=== PATIENT | female | born 1990 | race Caucasian/White ===

== ENCOUNTER 2024-01-12 12:51 | Emergency (ER) | payer BC, SELFPAY ==
[2024-01-12] VITALS (11 sets, daily range): BP systolic 105–124; BP diastolic 66–80; PULSE 95–114; RESP 14–18; TEMP 36.9–37.4; O2SAT 96–100
--- NOTE | 2024-01-12 13:02 | ECG_ITS ---
APPROVED REPORT Exam: Resting ECG HR:99 bpm ECG Measurements Heart Rate 99 AXES MD 134 P 60 QRSd 86 QRS 67 QT 300 T 45 QTc 356 Conclusion SINUS RHYTHM NONSPECIFIC ST & T-WAVE ABNORMALITY BORDERLINE ECG No STEMI Electronically signed by : ALEC WHITE, 01/13/2024 06:31:24
--- NOTE | 2024-01-12 13:18 | ED_ITS ---
Discharge Plan Disposition Patient Disposition: Home, Self-Care Condition: Good Prescriptions Prescriptions: New ondansetron 4 mg tablet,disintegrating 4 mg PO Q6H PRN (Reason: Nausea) Qty: 30 0RF Referrals Follow up/Referrals: Provider,Referral, MD [Referring] - See instructions Activity Restrictions/Add. Instructions Additional Instructions/Restrictions: Drink as much water, Gatorade, Powerade as you are able. Use Zofran every 6 hours as needed to ensure you are able to tolerate liquids. Eat small, bland meals as you are able. It may seem like this is going straight through you, but your body will still digest some of it. Ensure you keep surfaces clean and wash your hands with soap and water to attempt to prevent spread of the likely infectious gastroenteritis. Please follow up with your primary care provider in 2-3 days. Please return to ED if your symptoms worsen, change in location, change in severity, new symptoms develop or if you become concerned for your health. Clinical Impressions Clinical Impression: Gastroenteritis Stand Alone Forms Stand Alone Forms: Work/School Release Instructions Patient Instructions: DI for Syncope in Adults (Fainting), DI for Diarrhea and Traveler's Diarrhea -- Adult, DI for Diarrhea and Traveler's Diarrhea -- Child, DI for Nausea -- Adult, DI for Nausea -- Child, DI for Syncope in Children (Fainting) Print Language Print Language: Italian Discharge ED Provider: Charmaine Fraser General Adult HPI General Chief complaint: Syncope Stated complaint: nausea, vomiting, diarrhea Time Seen by Provider: 01/12/24 12:59 Mode of Arrival: EMS Source of Information: Patient and EMS Limitations: No Limitations Description of Symptoms (Recalled from ER Triage Doc. by RN): pt states she became sick today. She c/o N/V/D, myalgia, and a syncopal episode. pt states she was seen at a [facility] in [place] today and was negative for covid and flu. pt reports while driving home she became weak and pulled over. pt reports she passed out while pulled over. pt has a hx of HTN, thyroid disease, and a madiha. pt was given 500ml bolus of NS and 12.5 mg IV phenergran in route. pt states she feels some better now. History of Present Illness HPI narrative: Nguyen Souza is a 33 y/o female with a past medical history of hypertension and hypothyroidism who presents with nausea, vomiting, diarrhea and syncope. Patient states her symptoms started this morning when she initially woke up feeling a little poorly. She did not developed a fever of 101 ?F. Patient states she went to work and after approximately an hour, she left due to her symptoms. On her way home, patient began feeling worse and pulled over into a store parking lot. She then had a projectile vomiting episode that was accompanied by diarrhea and syncope. Patient currently complaining of a headache. Patient states EMS gave her Phenergan and IV fluids and she feels little bit better now. Related Data Previous Rx's ?Medication ?Instructions ?Recorded ondansetron 4 mg disintegrating 4 mg PO Q6H PRN Nausea #30 tabs 01/12/24 tablet Allergies Allergy/AdvReac Type Severity Reaction Status Date / Time codeine Allergy Unknown Verified 01/12/24 13:09 allergy reaction [facility] Disclaimer: The information contained in this section may have been updated after the patient was seen, as this information can be updated by other users. Social History Smoking Status: Never smoker alcohol intake: current current occupational status: employed Travel in the last 8 weeks: None ROS Obtained: Yes All systems reviewed & no additional complaints except as documented Physical Exam General General appearance: alert and in no apparent distress ENT ENT exam: Present normal exam, normal oropharynx, mucous membranes moist, TM's normal bilaterally and normal external ear exam Respiratory Respiratory exam: Present normal lung sounds bilaterally; Absent respiratory distress Cardiovascular Cardiovascular exam: Present regular rate and normal rhythm; Absent JVD Abdominal Exam Abdominal exam: Present soft and normal bowel sounds; Absent distention, tenderness or guarding Neurological Exam Neurological exam: Present alert and oriented X3 Psychiatric Psychiatric exam: Present normal affect and normal mood Skin Skin exam: Present warm, dry and pallor Medical Decision Making Medical Records Screening: Per USPSTF and CDC recommendations, given the prevalence of disease in our region, it is our hospital?s policy to screen for HIV and viral Hepatitis for all patients aged 18 and over and those with ongoing risk factors. Jeyson Inquiry Pt receiving controlled substance: No Vital Signs: 01/12/24 12:55 01/12/24 13:00 01/12/24 13:02 Temperature 99.3 F Temperature Source Oral Pulse Rate 114 H 104 H Pulse Rate [Left] 101 H Respiratory Rate 14 Blood Pressure 117/77 Blood Pressure [Right Arm] 124/75 Blood Pressure Mean [Right Arm] 91 Blood Pressure Source [Right Arm] Automatic Cuff Blood Pressure Position [Right Arm] Sitting 02 Sat by Pulse Oximetry 98 99 99 Oxygen Delivery Method Room Air 01/12/24 13:15 01/12/24 13:29 01/12/24 13:31 Temperature Temperature Source Pulse Rate 95 H 95 H 99 H Pulse Rate [Left] Respiratory Rate Blood Pressure 115/74 Blood Pressure [Right Arm] Blood Pressure Mean [Right Arm] Blood Pressure Source [Right Arm] Blood Pressure Position [Right Arm] 02 Sat by Pulse Oximetry 99 99 100 Oxygen Delivery Method 01/12/24 14:01 01/12/24 14:31 Temperature Temperature Source Pulse Rate 108 H 107 H Pulse Rate [Left] Respiratory Rate Blood Pressure 105/66 L 116/78 Blood Pressure [Right Arm] Blood Pressure Mean [Right Arm] Blood Pressure Source [Right Arm] Blood Pressure Position [Right Arm] 02 Sat by Pulse Oximetry 98 98 Oxygen Delivery Method Room Air Room Air Lab Data Lab Results 01/12/24 12:52: WBC 10.9 H, RBC 4.39, Hgb 12.1 L, Hct 37.7, MCV 85.8, MCH 27.4, MCHC 32.0, RDW 14.9, Plt Count 308, MPV 7.3 L, Neut % (Auto) 90.9 H, Lymph % (Auto) 5.6 L, [place] % (Auto) 2.7, Eos % (Auto) 0.5, Baso % (Auto) 0.3, Neut # (Auto) 9.9 H, Lymph # (Auto) 0.6 L, [place] # (Auto) 0.3, Eos # (Auto) 0.1, Baso # (Auto) 0.0, Total Counted 100, Neutrophils % (Manual) 87 H, Lymphocytes % (Manual) 11, Monocytes % (Manual) 2, Platelet Estimate Normal, RBC Morphology Normal, Sodium 138, Potassium 4.4, Chloride 110 H, Carbon Dioxide 22, Anion Gap 10.4, BUN 15, Creatinine 0.80, Estimated Creat Clear 116, Estimated GFR 84, Est GFR ( Amer) 101, Glucose 94, Calcium 8.3 L, Total Bilirubin 0.6, AST 36, ALT 23, Alkaline Phosphatase 70, Total Protein 6.4, Albumin 3.7, Globulin 2.7, Albumin/Globulin Ratio 1.4, Lipase 118, Serum HCG, Qual Negative 01/12/24 12:52 01/12/24 12:52 Orders (Tests/Meds): ORDERS Category Date Time Status CBC w/Auto Diff [Complete Blood Count Auto Diff] Stat Lab 01/12/24 12:52 Completed CMP [Comprehensive Metabolic Panel] Stat Lab 01/12/24 12:52 Completed Lipase Stat Lab 01/12/24 12:52 Completed Serum [HCG Qualitative, Serum] Stat Lab 01/12/24 12:52 Completed Urinalysis and Microscopic Stat Lab 01/12/24 13:16 Ordered Medical Decision Narrative: In summary, this is a 33-year-old female presenting with nausea, vomiting, diarrhea and syncope that started today. Patient has history of hypertension and hypothyroidism that are both well-controlled. Differential diagnosis includes but is not limited to, gastroenteritis, IBD, IBS, partial bowel obstruction, viral URI, pyelonephritis, among others. In order to evaluate the patient, will perform CBC, CMP, lipase, and urinalysis. Patient given IV Phenergan and 500 mL IV fluids prior to arrival. Will encourage oral fluid rehydration while in the department and awaiting laboratory evaluation results. Patient's laboratory evaluation significant for slight leukocytosis of 10.9, slight anemia 12.1, no thrombocytopenia. Patient's leukocytosis has a neutrophil predominance patient CMP negative for anion gap, hypokalemia, hyponatremia. Lipase is within normal limits, negative. Patient unable to provide a urine sample, however, low concern for acute cystitis at this time. On reevaluation, patient tolerating liquid intake without vomiting. Discussed with patient's that patient is likely suffering from an infectious gastroenteritis that will have to run its course with supportive care. Patient given return precautions, follow-up recommendations, time off from work as to provide adequate rest and infection prevention. Charmaine Fraser MD PGY-3, Emergency Medicine Critical Care Critical Care Time Critical Care Time: No
[2024-01-12 13:25] LABS: Albumin Level 3.7 g/dl (3.5-5.0); Chloride 110 mmol/L (98-107)
[2024-01-12 13:26] LABS: Potassium 4.4 mmoL/L (3.5-5.1); Sodium 138 mmol/L (136-145)
[2024-01-12 13:27] LABS: Basophils % 0.3 % (0.1-2.0); Eosinophils # 0.1 K/mm3 (0.0-0.4); Eosinophils % 0.5 % (0.1-12.0); Hematocrit 37.7 % (37.0-47.0); Hemoglobin 12.1 g/dL (12.2-16.2); Lymphocytes # 0.6 K/mm3 (0.7-4.5); Lymphocytes % 5.6 % (10-50); Mean Corpuscular Hemoglobin 27.4 pg (27.0-31.2); Mean Corpuscular Volume 85.8 fl (81-99); Mean Platelet Volume 7.3 fl (7.4-10.4); Monocytes # 0.3 K/mm3 (0.1-1.0); Monocytes % 2.7 % (1.7-9.3); Neutrophils # 9.9 K/mm3 (1.8-7.8); Neutrophils % 90.9 % (37.0-80.0); Platelet Count 308 K/mm3 (142-424); Red Blood Count 4.39 M/mm3 (4.20-5.40); Red Cell Distribution Width 14.9 % (11.5-17.5); White Blood Count 10.9 K/mm3 (4.8-10.8)
[2024-01-12 13:28] LABS: Alanine Aminotransferase 23 U/L (12-78); Alkaline Phosphatase 70 U/L (38-126); Anion Gap 10.4 mEq/L (5-15); Aspartate Amino Transferase 36 U/L (14-36); Bilirubin,Total 0.6 mg/dl (0.2-1.3); Blood Urea Nitrogen 15 mg/dl (7-17); Carbon Dioxide 22 mmol/L (22.0-30.0); Creatinine Clearance Estimated 116 mL/min (50-200); Estimated Glomerular Filt Rate 84 ml/min (>60); GFR (African American) 101 ML/MIN (>60)
[2024-01-12 13:29] LABS: Albumin/Globulin Ratio 1.4 (1.1-1.8); Calcium 8.3 mg/dl (8.4-10.2); Globulin 2.7 g/dL (1.3-3.2); Glucose 94 mg/dl (74-100); Lipase 118 U/L (23-300); Total Protein,Serum 6.4 g/dl (6.3-8.2)
[2024-01-12 13:35] LABS: MANUAL DIFFERENTIAL MANUAL DIFFERENTIAL (MANUAL DIFF)
[2024-01-12 14:55] LABS: Lymphocytes % 11 % (10-50); Monocytes % 2 % (2-9); Neutrophils % 87 % (42-76); Platelet Estimate Normal; RBC Morphology Normal; Total Cells Counted 100
[2024-01-12 14:56] LABS: HCG Qualitative, Serum Negative (Negative)
--- NOTE | 2024-01-12 15:40 | PC.NURSE ---
I took the pt out via wheelchair at d/c.
== END 2024-01-12 15:45 | disposition home or self-care (01) ==
PROVIDERS: Emergency Provider Student in an Organized Health Care Education/Training Program; PCP Nurse Practitioner
DX: K52.9 Noninfective gastroenteritis and colitis, unspecified (principal); R11.2 Nausea with vomiting, unspecified; M79.10 Myalgia, unspecified site; R55 Syncope and collapse; R53.1 Weakness; R50.9 Fever, unspecified; R51.9 Headache, unspecified
CPT/HCPCS: 80053; 83690; 84703; 85007; 85025; 85027; 93005; 99283

== ENCOUNTER 2024-09-28 15:42 | Emergency (ER) | payer OTHER, SELFPAY ==
[2024-09-28] VITALS (8 sets, daily range): BP systolic 121–148; BP diastolic 86–104; PULSE 63–86; RESP 11–20; TEMP 36.6–36.9; O2SAT 99–100; BMI 28.3
--- NOTE | 2024-09-28 15:41 | ECG_ITS ---
APPROVED REPORT Exam: Resting ECG HR:70 bpm ECG Measurements Heart Rate 70 AXES WI 154 P 59 QRSd 90 QRS 64 QT 379 T 31 QTc 400 Conclusion SINUS RHYTHM NORMAL ECG UNCONFIRMED REPORT Normal sinus rhythm. No ST elevation or depression Electronically signed by : PATRICE SHER, 09/29/2024 00:29:37
--- NOTE | 2024-09-28 15:44 | ED_ITS ---
Discharge Plan Disposition Patient Disposition: Home, Self-Care Prescriptions Prescriptions: New ferrous sulfate 325 mg (65 mg iron) tablet 325 mg PO DAILY Qty: 30 0RF ondansetron 4 mg tablet,disintegrating 4 mg PO Q6H PRN (Reason: nausea and vomiting) Qty: 16 0RF No Action ondansetron 4 mg tablet,disintegrating 4 mg PO Q6H PRN (Reason: Nausea) Qty: 30 0RF Referrals Follow up/Referrals: Susana Kennedy DO [Staff Physician, [facility]] - See instructions Provider,Referral, [Primary Care Provider, Medical] - See instructions Activity Restrictions/Add. Instructions Additional Instructions/Restrictions: You are being referred to the [facility] specialists. I encourage you to contact their office to schedule an appointment due to your heavy and prolonged vaginal bleeding. You are also found to have a mild kidney injury, likely secondary to dehydration in the setting of your vomiting. I encourage you to drink plenty of fluids, including water, sugar-free Gatorade and Pedialyte. You are also being started on iron supplementation for your anemia. Take this as prescribed. This can make you constipated and make your stools dark. I do encourage you to take a capful of MiraLAX daily to help keep your stools loose and to have regular bowel movements. You are also being prescribed Zofran for nausea and vomiting. Take this as prescribed. You do have a cyst that ruptured in the left ovary, which could be contributing to your pain. I do encourage you to closely follow-up with your primary care physician or your regular OBGYN physician if you do not wish to follow-up with [place] [facility]. If you develop any new or worsening symptoms, such as worsening dizziness, chest pain, shortness of breath, uncontrollable vaginal bleeding, or if you become concerned for your health for any reason, return to the emergency department for evaluation. Clinical Impressions Clinical Impression: Menorrhagia, TESSA (acute kidney injury), Anemia, blood loss, Hemorrhagic cyst of left ovary Print Language Print Language: Chinese Discharge ED Provider: Ranjeet Walter Adult HPI General Chief complaint: Dizziness Stated complaint: Vaginal Bleeding Time Seen by Provider: 09/28/24 15:44 Mode of Arrival: EMS Source of Information: Patient Limitations: No Limitations History of Present Illness HPI narrative: Goldie Souza is a 34y female with a history of heavy menses since May of 2024 who presents to the emergency department via EMS for concern for lightheadedness, vomiting and heavy vaginal bleeding. Patient states that she has had heavy and prolonged vaginal bleeding since May, stating that her periods will typically last up to a week now. She states that she is going through 1 tampon roughly every hour. She states that today, she had some nausea and went into take a shower and felt lightheaded and felt like she was going to pass out. She did have vomiting after this. She called 911 after laying down in the bathroom floor because she fell like she would pass out. She received Zofran and 1 L crystalloid and route. She was noted to be pale and diaphoretic by EMS. Patient denies any chest pain or shortness of breath. She states that she is followed by an [facility] OPER[facility] physician in [place] who has referred her to a specialist for concern for possible endometriosis, however she is not had a call back for an appointment and it has been over a month. She states that she is currently on day 4 of her period. She does report intermittent lower abdominal cramping that radiates to her back. She denies any dysuria. Patient does report pain with intercourse. Related Data Previous Rx's ?Medication ?Instructions ?Recorded ondansetron 4 mg disintegrating 4 mg PO Q6H PRN Nausea #30 tabs 01/12/24 tablet ferrous sulfate 325 mg (65 mg 325 mg PO DAILY #30 tabs 09/28/24 iron) tablet ondansetron 4 mg disintegrating 4 mg PO Q6H PRN nausea and 09/28/24 tablet vomiting #16 tabs Allergies Allergy/AdvReac Type Severity Reaction Status Date / Time codeine Allergy Unknown Verified 09/28/24 15:50 allergy reaction [facility] Disclaimer: The information contained in this section may have been updated after the patient was seen, as this information can be updated by other users. Social History (Updated 01/12/24 @ 15:29 by Charmaine Fraser MD) Smoking Status: Never smoker alcohol intake: current current occupational status: employed Travel in the last 8 weeks?: None Have you lived/traveled outside [place] in past 30 days?: No Contact w/someone who lives/traveled outside US past 30 days?: No Exposure to someone with infectious disease in past 14 days?: No Do you have a fever (greater than 100.4 F or 38 C)?: No Have you tested positive for COVID-19?: No Exposed to someone with COVID-19 in past 14 days?: No Do you have a sore throat?: No Do you have a cough?: No Do you have any weakness?: No Do you have any diarrhea?: No Are you experiencing any unusual bleeding?: No Do you have any muscle aches/pain?: No Do you have any abdominal pain?: No Are you experiencing loss of taste or smell?: No ROS Obtained: Yes Systems reviewed as appropriate & no additional complaints except as documented Physical Exam General General appearance: alert and in no apparent distress Head Head exam: atraumatic Eye Eye exam: Present normal appearance and other (pale conjunctiva) ENT ENT exam: Present normal external ear exam Neck Neck exam: Present full ROM Chest Chest inspection: Present symmetric chest wall rise Respiratory Respiratory exam: Present normal lung sounds bilaterally; Absent respiratory distress Cardiovascular Cardiovascular exam: Present regular rate and normal rhythm Abdominal Exam Abdominal exam: Present soft, tenderness (suprapubic and LLQ) and guarding (LLQ) Extremities Exam Extremities exam: Present normal inspection Back Exam Back exam: Present normal inspection Neurological Exam Neurological exam: Present alert and oriented X3 Psychiatric Psychiatric exam: Present normal affect Skin Skin exam: Present warm, dry and other (pale oral mucosa) Medical Decision Making Medical Records Screening: Per USPSTF and CDC recommendations, given the prevalence of disease in our region, it is our hospital?s policy to screen for HIV and viral Hepatitis for all patients aged 18 and over and those with ongoing risk factors. Jeyson Inquiry Pt receiving controlled substance: No Vital Signs: 09/28/24 15:43 09/28/24 16:00 09/28/24 16:15 Temperature 97.8 F Temperature Source Oral Pulse Rate 71 70 Pulse Rate [Orthostatic Lying] Pulse Rate [Orthostatic Sitting] Pulse Rate [Orthostatic Standing] Pulse Rate [Right Brachial] 74 Respiratory Rate 16 18 11 L Blood Pressure Blood Pressure [Orthostatic Lying Right Arm] Blood Pressure [Orthostatic Sitting Right Arm] Blood Pressure [Orthostatic Standing Right Arm] Blood Pressure [Right Arm] 133/98 H Blood Pressure Mean Blood Pressure Mean [Right Arm] 109 Blood Pressure Source [Right Arm] Automatic Cuff Blood Pressure Position [Right Arm] Supine 02 Sat by Pulse Oximetry 100 100 100 Oxygen Delivery Method Room Air Room Air Room Air 09/28/24 16:50 09/28/24 16:50 09/28/24 16:51 Temperature Temperature Source Pulse Rate 86 77 Pulse Rate [Orthostatic Lying] 63 Pulse Rate [Orthostatic Sitting] 69 Pulse Rate [Orthostatic Standing] 78 Pulse Rate [Right Brachial] Respiratory Rate Blood Pressure 138/97 H 135/98 H Blood Pressure [Orthostatic Lying Right Arm] 135/104 H Blood Pressure [Orthostatic Sitting Right Arm] 138/97 H Blood Pressure [Orthostatic Standing Right Arm] 135/98 H Blood Pressure [Right Arm] Blood Pressure Mean 110 Blood Pressure Mean [Right Arm] Blood Pressure Source [Right Arm] Blood Pressure Position [Right Arm] 02 Sat by Pulse Oximetry 100 99 Oxygen Delivery Method Room Air Room Air 09/28/24 17:45 09/28/24 18:00 09/28/24 19:39 Temperature 98.4 F Temperature Source Pulse Rate 64 66 66 Pulse Rate [Orthostatic Lying] Pulse Rate [Orthostatic Sitting] Pulse Rate [Orthostatic Standing] Pulse Rate [Right Brachial] Respiratory Rate 20 Blood Pressure 148/99 H 121/86 121/86 Blood Pressure [Orthostatic Lying Right Arm] Blood Pressure [Orthostatic Sitting Right Arm] Blood Pressure [Orthostatic Standing Right Arm] Blood Pressure [Right Arm] Blood Pressure Mean Blood Pressure Mean [Right Arm] Blood Pressure Source [Right Arm] Blood Pressure Position [Right Arm] 02 Sat by Pulse Oximetry 100 99 Oxygen Delivery Method Room Air Room Air Room Air Lab Data Lab Results 09/28/24 15:30: WBC 12.2 H, RBC 4.27, Hgb 10.3 L, Hct 32.8 L, MCV 76.8 L, MCH 24.1 L, MCHC 31.4 L, RDW 15.4, Plt Count 459 H, MPV 9.0, Neut % (Auto) 43.4, Lymph % (Auto) 50.0, [place] % (Auto) 5.1, Eos % (Auto) 0.7, Baso % (Auto) 0.5, Neut # (Auto) 5.3, Lymph # (Auto) 6.1 H, [place] # (Auto) 0.6, Eos # (Auto) 0.1, Baso # (Auto) 0.1, Total Counted 100, Neutrophils % (Manual) 46, Lymphocytes % (Manual) 49, Monocytes % (Manual) 3, Eosinophils % (Manual) 2, Platelet Estimate Slight increase, RBC Morphology Normal, PT 10.9, INR 0.98, APTT 23.9, Sodium 137, Potassium 3.7, Chloride 105, Carbon Dioxide 19 L, Anion Gap 16.7 H, BUN 14, Creatinine 1.10 H, Estimated Creat Clear 79, Estimated GFR 58 L, Est GFR ( Amer) 70, Glucose 124 H, Calcium 9.2, Total Bilirubin 0.4, AST 34, ALT 17, Alkaline Phosphatase 81, Total Protein 7.8, Albumin 4.4, Globulin 3.4 H, Albumin/Globulin Ratio 1.3, Lipase 174, Serum HCG, Qual Negative, HCV Ab CH[place]O w/Rflx PCR Qn Negative, HIV Ag/Ab Combo Qual Negative 09/28/24 15:42: Blood Type O Negative, Antibody Screen Negative 09/28/24 18:39: Urine Color Red, Urine Appearance Sl cloudy, Urine pH 7.5, Ur Specific Richards 1.015, Urine Protein Trace, Urine Glucose (UA) Negative, Urine Ketones Negative, Urine Blood 3+ A, Urine Nitrate Negative, Urine Bilirubin Negative, Urine Urobilinogen 0.2, Ur Leukocyte Esterase Negative, Urine RBC Tntc, Urine WBC None, Ur Squamous Epith Cells 3-5, Urine Bacteria 1+ 09/28/24 15:30 09/28/24 15:30 Orders (Tests/Meds): ED MEDICATIONS Discontinued Medications Generic Name Dose Route Start Last Admin Trade Name Freq PRN Reason Stop Dose Admin Ketorolac Tromethamine 15 mg 09/28/24 16:03 09/28/24 17:22 Ketorolac 30mg/Ml Vial IV 09/28/24 16:04 15 mg ONCE ONE Administration Ondansetron HCl 4 mg 09/28/24 16:45 09/28/24 16:49 Ondansetron 4mg/2ml Vial IV 09/28/24 16:46 4 mg ONCE ONE Administration ORDERS Category Date Time Status Type and Screen Stat BBK 09/28/24 15:42 Completed US transvaginal Stat Exams 09/28/24 16:02 Completed CMP [Comprehensive Metabolic Panel] Stat Lab 09/28/24 15:30 Completed Complete Blood Count Auto Diff Stat Lab 09/28/24 15:30 Completed HIV Combo Stat Lab 09/28/24 15:30 Completed Hepatitis C Ab Qual. W/ RFX Stat Lab 09/28/24 15:30 Completed Lipase Stat Lab 09/28/24 15:30 Completed PT INR [Prothrombin Time INR] Stat Lab 09/28/24 15:30 Completed PTT [Activated Partial Thrombo Time] Stat Lab 09/28/24 15:30 Completed Serum [HCG Qualitative, Serum] Stat Lab 09/28/24 15:30 Completed UA [Urinalysis and Microscopic] Stat Lab 09/28/24 18:39 Completed ECG Data Tracing #1: I reviewed this ECG and interpreted as documented below: Normal sinus rhythm. No ST elevation or depression. QTc normal at 400 Medical Decision Narrative: Goldie Souza is a 34y female with a history of heavy menses since May of 2024 who presents to the emergency department via EMS for concern for lightheadedness, vomiting and heavy vaginal bleeding. Patient states that she has had heavy and prolonged vaginal bleeding since May, stating that her periods will typically last up to a week now. She states that she is going through 1 tampon roughly every hour. She states that today, she had some nausea and went into take a shower and felt lightheaded and felt like she was going to pass out. She did have vomiting after this. She called 911 after laying down in the bathroom floor because she fell like she would pass out. She received Zofran and 1 L crystalloid and route. She was noted to be pale and diaphoretic by EMS. Patient denies any chest pain or shortness of breath. She states that she is followed by an [employer] [employer] OPER[employer] physician in [place] who has referred her to a specialist for concern for possible endometriosis, however she is not had a call back for an appointment and it has been over a month. She states that she is currently on day 4 of her period. She does report intermittent lower abdominal cramping that radiates to her back. She denies any dysuria. Patient does report pain with intercourse. On arrival, patient is initial blood pressure 133/98, heart rate within normal limits, breathing comfortably on room air with oxygen saturation 100% SpO2. Afebrile. Physical exam, as stated above, revealed a nontoxic-appearing female who is ill-appearing but in no distress. She appears pale with pale oral mucosa and conjunctive. Abdomen is nonperitoneal and nondistended but she does have tenderness in the suprapubic and left lower quadrant with some mild guarding in this area. Cardiopulmonary exam is unremarkable. She has no peripheral edema. Differential diagnosis includes, but is not limited to: Ruptured ectopic , dysmenorrhea, endometriosis, adenomyosis, spontaneous , uterine fibroids, among others. The most morbid conditions were considered and workup was based on these. Patient's workup in the emergency department included: Type and screen, CBC with differential, CMP, lipase, serum test, urinalysis. Patient received Zofran prior to arrival and 1 L crystalloid. She states that she has had some improvement in her nausea at this time. If test is negative, will administer 15 mg IV Toradol. Will also give additional 4 mg of IV Zofran for continued nausea after transvaginal ultrasound Laboratory workup shows mild leukocytosis of 12.2. Hemoglobin is mildly low at 10.3 and hematocrit of 32.8. In our EMR, patient's last hemoglobin was obtained in February 02 and was 12.1 at that time. Patient's bleeding only started a few months ago however. Patient's MCV is low. Platelets are mildly elevated at 4 and 59 but nonactionable. Electrolytes within normal limits. Mildly elevated anion gap of 16.7. Icar mildly low at 19. Mild TESSA with creatinine of 1.10 (baseline appears to be around 0.8). Glucose normal at 124. Liver enzymes and bilirubin within normal limits. Negative test. Transvaginal ultrasound was interpreted by me personally demonstrated a hemorrhagic left ovarian cyst but measures less than 5 cm. No evidence of ovarian torsion. No other acute findings. See radiology report for details. On reassessment, patient states that she feels much improved from her initial presentation. I am recommending close [employer]PER[employer] follow-up and patient is amenable to having referral placed to [facility] at [facility] for further evaluation of her heavy menstrual bleeding. Due to her blood loss anemia, it is felt that she would benefit from iron supplementation. I discussed that starting this can cause constipation and dark stools and that if she does develop constipation to take MiraLAX and to continue to hydrate well by drinking plenty of fluids. Will also prescribe Zofran to help with any nausea and vomiting. 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 I also encouraged her to continue to drink plenty of fluids over the next several days due to her mild TESSA. Return precautions were given. All questions were answered. She demonstrated understanding and was in agreement with this plan. She was then discharged from the emergency department in stable condition. Critical Care Critical Care Time Critical Care Time: No
--- OUTSIDE RECORDS SUMMARY | 2024-09-28 16:00 | XMS_ITS | Clinical Summary ---
Author Organization [facility] Address [address] [place] [address] Care Team Providers Care Weatherization Technician Name Role Phone Tenisha Vasquez Primary Care Provider [phone] Allergies Active Allergy Reactions Criticality Noted Date Comments Codeine Rash Low 09/29/2015 Medications amLODIPine (NORVASC) 10 MG tablet Take 1 tablet by mouth Daily. 30 tablet 08/23/2024 Active escitalopram (Lexapro) 10 MG tabletIndicatio ns:Anxiety and depression Take 1 tablet by mouth Daily for 180 days. 30 tablet 08/23/2024 02/19/19 26 Active hydrOXYzine (ATARAX) 25 MG tablet Take 1 tablet by mouth 3 (Three) Times a Day As Needed for Itching. 90 tablet 08/23/2024 Active lamoTRIgine (LaMICtal) 25 MG tabletIndicatio ns:Anxiety and depression Take one tablet by mouth daily for 14 days then increase to two tablets daily 42 tablet 08/23/2024 Active levothyroxine (SYNTHROID, LEVOTHROID) 150 MCG tablet Take 1 tablet by mouth Daily. 30 tablet 08/23/2024 Active metoprolol succinate XL (TOPROL-XL) 25 MG 24 hr tablet Take 1 tablet by mouth Daily. 30 tablet 08/23/2024 Active omeprazole (priLOSEC) 40 MG capsule Take 1 capsule by mouth Daily. 30 capsule 08/23/2024 Active Active Problems Problem Noted Date Diagnosed Date Breakthrough bleeding 12/23/2023 Overview (12/23/2023): Spotting for up to 1 week following menses. Pap normal, + BV. U/S at F/U is normal with a 1 cm fibroid, endometrium 6 mm and uniform, ovaries normal. Cervix was friable, pt still on flagyl and prefers to complete this prior to considering silver nitrate to cervix. Last menses she did not have BTB Chronic fatigue 09/14/2023 Assessment & Plan (09/14/2023 4:00 PM EDT): Patient has complaints of fatigue today. She states that she feels as though she can never get enough sleep, is sleeping her life away. Patient states she also has issues with significant snoring. She notes that she has a CPAP machine at home of her mothers that she could use. She is advised that everyone's prescription is same and she does need referral for sleep medicine for further evaluation. -Referral to Dr. Blayne raphael for sleep medicine Primary hypertension 09/11/2023 Assessment & Plan (01/01/2024 5:00 PM EST): Blood pressure stable on metoprolol XL 25 mg daily and amlodipine 10 mg daily. Patient states she has been treated with medication for hypertension since the age of 18. She underwent extensive testing including a renal ultrasound without any adverse etiologies noted . Blood pressure in office today is 122/84. Assessment & Plan (09/14/2023 3:58 PM EDT): Blood pressure stable on metoprolol XL 25 mg daily and amlodipine 10 mg daily. Patient states she has been treated with medication for hypertension since the age of 18. She underwent extensive testing including a renal ultrasound without any adverse etiologies noted Encounter to establish care 09/11/2023 Gastroesophageal reflux disease without esophagi tis 09/11/2023 Assessment & Plan (09/14/2023 3:55 PM EDT): Well-controlled on daily omeprazole 40 mg Anxiety and depression 09/11/2023 Assessment & Plan (01/01/2024 4:59 PM EST): Patient presents today with complaints of rapid cycle of mood changes, approximately once weekly that range from very hyper and happy to very depressed and down the dumps. She finds that her irritability and agitation is becoming more frequent, the smallest thing can set her off into a spiral and change of mood. She states that she is also had issues moving on quickly from things that upset her. She has been well-controlled on Lexapro 10 mg daily for a number of years but feels she would benefit from a mood change. Given cycling of emotion will initiate mood stabilizer lamotrigine. Patient to take 125 mg tablet once daily for 14 days then increase to 2 tablets once daily until her follow-up in 4 weeks. She is to continue seeing her therapist. We discussed that we have a mental health nurse practitioner starting in our office the next couple of weeks and if this medication does not provide benefit we will refer her to that provider for further evaluation and treatment. Assessment & Plan (09/14/2023 3:55 PM EDT): Patient's mood has been well-controlled on dose of escitalopram 10 mg daily for several years, she is not followed by behavioral health. She has never required counseling or therapy services. Class 1 obesity due to exces s calories with serious comorbidity and body mass index (BMI) of 32.0 to 32.9 in adult 09/11/2023 Assessment & Plan (09/14/2023 3:55 PM EDT): Patient's (Body mass index is 32.05 kg/m .) indicates that they are obese (BMI >30) with health conditions that include hypertension . Weight is unchanged. BMI is above average; BMI management plan is completed. We discussed portion control and increasing exercise. 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 Remi Mclaughlin for hypothyroidism due to Yanet's thyroiditis. Patient is currently euthyroid on levothyroxine 150 mcg daily. Assessment & Plan (09/14/2023 3:56 PM EDT): Patient followed by [facility], Dr. Remi Mclaughlin for hypothyroidism due to Yanet's thyroiditis. Patient is currently euthyroid on levothyroxine 150 mcg daily. It has been quite sometime since she had her levels checked, will recheck those today. Assessment & Plan (06/15/2020 10:13 AM EDT): Clinically she is euthyroid Will check labs and adjust dose based upon results as indicated Encounters Date Type Department Care Team Description 08/23/2024 [facility]IMARY [facility]ARE [address] [place] [address] [place] [address] Fadia Rubin APRN Anxiety and depression from Last 3 Months Family History Medical History Relation Name Comments Hypertension Father Maurisio rainey Breast cancer Maternal Aunt iLz trivedi Hypertension Maternal Grandfather Breast cancer Maternal Grandmother Lilymisha Trivedi Hypertension Maternal Grandmother Lily Matt Hypertension Mother Lidia trivedi Hypertension Paternal Grandfather Hypertension Paternal Grandmother Relation Name Status Comments Father Maurisio rainey Alive Maternal Aunt Liz trivedi Maternal Grandfather Maternal Grandmother Lily Trivedi Mother Lidai trivedi Alive Paternal Grandfather Paternal Grandmother Social History Tobacco Use Types Packs/Day Years Used Date Smoking Tobacco: Never Smokeless Tobacco: Never Tobacco Cessation:Counseling Given: Not Answered Alcohol Use Standard Drinks/Week Comments No 0 (1 standard drink = 0.6 oz pur e alcohol) PHQ-2 Answer Date Recorded Retired PHQ-9: Brief Depression Severity Measure Score 0 09/11/2023 Comments No Sex and Gender Information Value Date Recorded Sex Assigned at Not on file Legal Sex Female 1:50 PM EDT Gender Identity Not on file Sexual Orientation Not on file Last Filed Vital Signs Vital Sign Reading Time Taken Comments Blood Pressure 122/84 12/31/2023 1:36 PM EST Pulse 102 12/31/2023 1:36 PM EST Temperature 36.3 C (97.3 F) 12/31/2023 1:36 PM EST Respiratory Rate 18 12/31/2023 1:36 PM EST Oxygen Saturation 99% 12/31/2023 1:36 PM EST Inhaled Oxygen Concentration - - Weight 71.2 kg (157 lb) 12/31/2023 1:36 PM EST Height 154.9 cm (5' 0.98 ) 12/31/2023 1:36 PM ES T Body Mass Index 29.68 12/31/2023 1:36 PM EST Plan of Treatment Upcoming Encounters Date Type Department Care Team (Late st Contact Info) Description 10/07/2024 1:30 PM EDT Office Visit [facility] [address] [facility], [place] [id number] Tenisha Vasquez PA [address] [facility], [place] [id number] Health Maintenance Due Date Last Done Comments TDAP/TD VACCINES (1 - Tdap) 02/17/2011 ANNUAL PHYSICAL 08/19/2017 HEPATITIS C SCREENING 08/19/2017 COVID-19 Vaccine (2023-2 5 season) 2023 INFLUENZA VACCINE 11/10/2024 Annual Gynecologic Pelvic an d Breast Exam 12/08/2024 12/08/2023 PAP SMEAR 12/07/2026 12/08/2023, 08/22/2022 Pneumococcal Vaccine 0-49 Aged Out No longer eligible based on patient's age to complete this topic Procedures Procedure Name Priority Date/Time Associated Diagnosis Comments LIQUID-BASED PAP SMEAR WITH HPV GENOTYPING REGARDLESS OF INTERPRETATION, [facility] ([facility]) Routine 12/08/2023 3:41 PM EDT Vaginal discharge Breakthrough bleeding from Last 3 Months or Most Recently Relevant to Health Maintenance Results * LIQUID-BASED PAP SMEAR WITH HPV GENOTYPING REGARDLESS OF INTERPRETATION (KASHMIR,COR,MAD) (12/08/2023 3:41 PM EDT) Pathologist [facility] Reference Lab Report [facility] [address] [place] [address] or [phone] Mark Gillette M.D., Seafood And [employer] Meat Manager PATIENT NAME LABORATORY NO. 65ROYCE COOPER Sesar [id number] AGE SEX SSN CLIENT REF # [facility] ([facility]) 31 1990 F [id number] Nathan SAUER REQUESTING M.D. ATTENDING M.D. COPY TO. TOM RIVAS [id number] GISELA ELLINGTON DATE COLLECTED DATE RECEIVED DATE REPORTED 12/08/2023 12/08/2023 12/15/2023 ThinPrep Pap with Cytyc Imaging DIAGNOSIS: Negative for intraepithelial lesion or malignancy Multiple factors can influence accuracy of Pap tests; therefore, screening at regular intervals is necessary for early cancer detection. COMMENT: Benign cellular changes associated with inflammation are present. SPECIMEN ADEQUACY: SATISFACTORY FOR EVALUATION Transformation zone is present. Partially obscuring inflammation is present. SOURCE OF SPECIMEN: CERVICAL/ENDOCERVI JANETTE SLIDES: 1 CLINICAL HISTORY: Please add BV/yeast to pap smear Vaginal discharge Breakthrough bleeding HPV HR-HPV POOL: Negative The Aptima HPV assay is an in vitro nucleic acid amplification test for the qualitative detection of E6/E7 viral messenger RNA from 14 high risk types of HPV in cervical specimens. The high risk HPV types detected include: 16, 18, 31, 33, 35, 39, 45, 51, 52, 56, 58, 59, 66, 68 Trichomonas TRICHOMONAS VAGINALIS: Negative The Aptima Trichomonas vaginalis assay is an in vitro qualitative nucleic acid amplification test for the detection of ribosomal RNA to aid in the diagnosis of trichomoniasis. Sendout Ancillary Vaginosis Tests ATOPOBIUM VAGINAE: Positive BVAB2: Positive VERONIQUE GLABRATA: Negative VERONIQUE PARAPSILOSIS: Negative VERONIQUE TROPICALIS: Negative MEGASPHAERA 1: Positive [facility] VERONIQUE ALBICANS: Negative COMMENT: The above results are intended for medical diagnosis and treatment purposes only. Results from this assay (s) should be interpreted in conjunction with other laboratory and clinical data. The test is not intended to differentiate carriers of the organism from those with active infections. Therapeutic success or failure cannot be assessed using this test because DNA may persist following antimicrobial therapy. Nucleic acid base changes or mutations can result in false negative reactions. This test was developed and its performance characteristics determined by [facility] It has not been cleared or approved by the U.S. Food and Drug Administration. The FDA has determined that such clearance or approval is not necessary. [facility] ([facility]) is located in [place], [place] BUILDING CONSTRUCTION ENGINEER: [place] (ASCP) CPT CODES: 57797, 26917, 39839, 48669j8, 35427x8 12/15/2023 12:51 PM EST [facility] ThinPrep Vial Cervix uteri structure / Unknown Collection / Unknown 12/08/2023 3:41 PM EDT 12/08/2023 3:41 PM EDT us Gisela Ellington DAIRY ASSOCIATE PATHOLOGY/CYTOLOGY ORDERA BLES Final Result [facility]
[address] [place] [address], [place] [phone] from Last 3 Months or Most Recently Relevant to Health Maintenance Insurance [facility] Care Teams Weatherization Technician Relationship Specialty Start Date End Date Tenisha Vasquez PA [address] [place] [address] PCP - General Family Medicine 09/23/24
--- OUTSIDE RECORDS SUMMARY | 2024-09-28 16:00 | XMS_ITS | Encounter Summary ---
Author Organization [facility] Address [address] [place] [address] Care Team Providers Care Quantitative Analyst Name Role Phone Fadia Rubin APRN Primary Care Provider [phone] Reason for Visit * Reason Onset Date Comments Med Refill 08/23/2024 Encounter Details Date Type Department Care Team (Late st Contact Info) Description 08/23/2024 Refill [facility] [address] [place] [address] [place] [phone] Fadia Rubin APRN [address] [place] [address] Anxiety and depression Social History Tobacco Use Types Packs/Day Years Used Date Smoking Tobacco: Never Smokeless Tobacco: Never Alcohol Use Standard Drinks/Week Comments No 0 (1 standard drink = 0.6 oz pur e alcohol) PHQ-2 Answer Date Recorded Retired PHQ-9: Brief Depression Severity Measure Score 0 09/11/2023 Comments No Sex and Gender Information Value Date Recorded Sex Assigned at Not on file Legal Sex Female 1:50 PM EDT Gender Identity Not on file Sexual Orientation Not on file documented as of this encounter Miscellaneous Notes * Telephone Encounter - EmileAlva manjarrez RegSched Rep - 08/23/2024 11:46 AM EDT Caller: Goldie Moore Relationship: Self Best call back number: [phone] Requested Prescriptions: Requested Prescriptions Pending Prescriptions Disp Refills amLODIPine (NORVASC) 10 MG tablet 30 tablet 1 Sig: Take 1 tablet by mouth Daily. escitalopram (Lexapro) 10 MG tablet 90 tablet 1 Sig: Take 1 tablet by mouth Daily for 180 days. hydrOXYzine (ATARAX) 25 MG tablet Sig: Take 1 tablet by mouth 3 (Three) Times a Day As Needed for Itching. lamoTRIgine (LaMICtal) 25 MG tablet 42 tablet 1 Sig: Take one tablet by mouth daily for 14 days then increase to two tablets daily levothyroxine (SYNTHROID, LEVOTHROID) 150 MCG tablet 90 tablet 1 Sig: Take 1 tablet by mouth Daily. metoprolol succinate XL (TOPROL-XL) 25 MG 24 hr tablet 90 tablet 1 Sig: Take 1 tablet by mouth Daily. omeprazole (priLOSEC) 40 MG capsule 30 capsule 1 Sig: Take 1 capsule by mouth Daily. Pharmacy where request should be sent: [facility] [id number] [address] AT [facility] [address] - [phone] [facility] [phone] FX Last office visit with prescribing clinician: 12/31/2023 Last telemedicine visit with prescribing clinician: Visit date not found Next office visit with prescribing clinician: Visit date not found Additional details provided by patient: PATIENT NEEDS REFILLS UNTIL SHE SEES NEW PROVIDER AT [facility] Does the patient have less than a 3 day supply: [] Yes [x] No Would you like a call back once the refill request has been completed: [] Yes [x] No If the office needs to give you a call back, can they leave a voicemail: [] Yes [x] No Kashif Alas 08/23/24 11:48 EDT documented in this encounter Plan of Treatment Upcoming Encounters Date Type Department Care Team (Late st Contact Info) Description 10/07/2024 1:30 PM EDT Office Visit [facility] [address] [place] [address] Tenisha Vasquez PA [address] [place] [address] documented as of this encounter Visit Diagnoses Diagnosis Anxiety and depression documented in this encounter Care Teams Quantitative Analyst Relationship Specialty Start Date End Date Fadia Rubin APRN [address] [place] [id number] PCP - General Family Medicine 09/01/23 09/22/24 documented as of this encounter
--- NOTE | 2024-09-28 16:02 | US_ITS ---
PROCEDURE INFORMATION: Exam: US Pelvis, Transvaginal, Non-Obstetric Exam date and time: 09/28/2024 4:23 PM Age: 34 years old Clinical indication: Other: Vaginal bleeding; Additional info: Heavy vaginal bleeding, possible endometriosis TECHNIQUE: Imaging protocol: Real-time transvaginal pelvic (non-obstetric) ultrasound with image documentation. Transvaginal imaging was used for better evaluation of the endometrium, adnexa, and/or cervix. COMPARISON: No relevant prior studies available. FINDINGS: Uterus: Uterus measures 8.2 x 4.3 x 5.1 cm. Anteverted. Endometrial stripe measures 0.6 cm. Right ovary/adnexa: Right ovary measures 3.5 x 2.5 x 2.5 cm. Follicle measuring 1.1 cm. Additional smaller follicles. Appropriate flow to the right ovary on color and spectral analysis. Left ovary/adnexa: Left ovary measures 5.3 x 3.8 x 3.7 cm. 4.1 x 3.1 x 3.8 cm complex left ovarian cyst with an appearance typical of a hemorrhagic cyst. Appropriate flow to the left ovary on color and spectral analysis. Urinary bladder: Not assessed. Intraperitoneal space: Minimal free fluid. IMPRESSION: Hemorrhagic left ovarian cyst requires no imaging follow-up (less than 5 cm in a reproductive age patient). REFERENCES: Evie D, Dandy DL, Gabriel DEGROOT, et al. Management of asymptomatic ovarian and other adnexal cysts imaged at US: Society of Radiologists in Ultrasound Consensus Conference Statement. Radiology. 2010;256(3):943-954.
[2024-09-28 16:07] LABS: Hematocrit 32.8 % (37.0-47.0); Hemoglobin 10.3 g/dL (12.2-16.2); Immature Granulocytes % 0.3 %; Mean Corpuscular HGB Conc 31.4 g/dL (31.8-35.4); Mean Corpuscular Hemoglobin 24.1 pg (27.0-31.2); Mean Corpuscular Volume 76.8 fl (81-99); Nucleated Red Blood Cells % 0 %; Platelet Count 459 K/mm3 (142-424); Red Blood Count 4.27 M/mm3 (4.20-5.40); Red Cell Distribution Width-SD 43.0 fL; White Blood Count 12.2 K/mm3 (4.8-10.8)
[2024-09-28 16:14] LABS: Lipase 174 U/L (23-300)
[2024-09-28 16:15] LABS: Alanine Aminotransferase 17 U/L (12-78); Albumin Level 4.4 g/dl (3.5-5.0); Albumin/Globulin Ratio 1.3 (1.1-1.8); Alkaline Phosphatase 81 U/L (38-126); Anion Gap 16.7 mEq/L (5-15); Aspartate Amino Transferase 34 U/L (14-36); Bilirubin,Total 0.4 mg/dl (0.2-1.3); Blood Urea Nitrogen 14 mg/dl (7-17); Calcium 9.2 mg/dl (8.4-10.2); Carbon Dioxide 19 mmol/L (22.0-30.0); Chloride 105 mmol/L (98-107); Creatinine Clearance Estimated 79 mL/min (50-200); Creatinine,Serum 1.10 mg/dl (0.52-1.04); Estimated Glomerular Filt Rate 58 ml/min (>60); GFR (African American) 70 ML/MIN (>60); Globulin 3.4 g/dL (1.3-3.2); Glucose 124 mg/dl (74-100); Potassium 3.7 mmoL/L (3.5-5.1); Sodium 137 mmol/L (136-145); Total Protein,Serum 7.8 g/dl (6.3-8.2)
[2024-09-28 16:18] LABS: Activated Partial Thrombo Time 23.9 seconds (22.8-30.6); INR 0.98 (0.9-1.1); Prothrombin Time 10.9 seconds (10.1-12.5)
--- NOTE | 2024-09-28 16:20 | PC.NURSE ---
Pt to US
[2024-09-28 16:33] LABS: RBC Morphology Normal; Total Cells Counted 100
--- NOTE | 2024-09-28 16:43 | PC.NURSE ---
Pt back from US
[2024-09-28] MEDS: ONDANSETRON 4MG/2ML VIAL 4 MG IV (16:49)
[2024-09-28 16:57] LABS: HCG Qualitative, Serum Negative (Negative)
[2024-09-28] MEDS: KETOROLAC 30MG/ML VIAL 15 MG IV (17:22)
[2024-09-28 17:54] LABS: Hepatitis C Ab Qual. W/ RFX NEGATIVE (Negative)
[2024-09-28 18:50] LABS: Microscopic, Urine URINE MICROSCOPIC (MICROSCOPIC)
[2024-09-28 19:25] LABS: Bilirubin,Urine Negative (Negative); Color,Urine RED (Yellow); Glucose,Urine (UA) Negative (Negative); Ketones,Urine Negative (Negative); Leukocyte Esterase,Urine Negative (Negative); PH,Urine 7.5 (5.0-8.5); Protein,Urine TRACE (Negative); Specific Gravity, Urine 1.015 (1.005-1.030); Urobilinogen,Urine 0.2 EU/dl (0.2)
[2024-09-28 19:31] LABS: Bacteria,Urine 1+ /lpf; RBC,Urine TNTC #/hpf (0-3)
== END 2024-09-28 19:47 | disposition home or self-care (01) ==
PROVIDERS: Emergency Provider Student in an Organized Health Care Education/Training Program
DX: R10.32 Left lower quadrant pain (principal); D50.0 Iron deficiency anemia secondary to blood loss (chronic); N92.0 Excessive and frequent menstruation with regular cycle; N83.202 Unspecified ovarian cyst, left side; N17.9 Acute kidney failure, unspecified; R11.2 Nausea with vomiting, unspecified; R42 Dizziness and giddiness
CPT/HCPCS: 36415; 76830; 80053; 81001; 83690; 84703; 85007; 85025; 85027; 85610; 85730; 86803; 86850; 87389; 93005; 96374; 96375; 99284; 99285; J1885; J2405